=== PATIENT | male | born 1930 | race Caucasian/White ===

== ENCOUNTER 2019-12-16 14:34 | Inpatient (IN) | payer OTHER ==
[~2019-12-16] VITALS: Ht 170.2 cm; Wt 80.3 kg
[2019-12-16 14:36] VITALS: BP 136/70
[2019-12-16 14:55] LABS: ABSOLUTE NEUTROPHILS 4.6 thou/uL (1.4-8.2); BASOPHILS 0.2 % (0.0-2.0); EOSINOPHILS 2.9 % (0.0-3.0); HEMOGLOBIN 14.5 gm/dL (14.0-18.0); LYMPHOCYTES 22.4 % (24.0-44.0); MCH 29.7 pg (26.0-34.0); MCHC 33.8 g/dL (28.0-37.0); MCV 87.8 fL (80.0-100.0); MONOCYTES 8.9 % (1.0-8.0); PLATELET COUNT 168 thou/uL (150-400); POLYS 65.6 % (36.0-66.0); RDW 14.1 % (10.5-14.5)
[2019-12-16] MEDS ORDERED: ARICEPT10 M1 PO (14:56)
[2019-12-16] MEDS ORDERED: ASA81BEC PO (14:56)
[2019-12-16] MEDS ORDERED: CARDIZEM SR 60M60 MG PO (14:56)
[2019-12-16] MEDS ORDERED: VITAMIN B-121000 MC2 SUBLING (14:57)
[2019-12-16] MEDS ORDERED: ATIVAN0.5 M1 PO (14:58)
[2019-12-16] MEDS ORDERED: NIASPAN 500 MG500 M1 PO (14:58)
[2019-12-16] MEDS ORDERED: PROTONIX40 M2 PO (14:59)
[2019-12-16] MEDS ORDERED: SEROQUEL 25 MG25 M1 PO (14:59)
[2019-12-16] MEDS ORDERED: SIMVASTATIN80 MG PO (14:59)
--- NOTE | 2019-12-16 15:00 | NUR ---
PT DENIES PREFERRED PHARM DUE TO BEING IN A ALF FACILITY
[2019-12-16 15:07] LABS: URINE BILIRUBIN NEGATIVE (Negative); URINE BLOOD TRACE (Negative); URINE CLARITY CLEAR; URINE COLOR YELLOW; URINE GLUCOSE-RANDOM* NEGATIVE (Negative); URINE KETONES NEGATIVE (Negative); URINE LEUKOCYTES-REFLEX 1+ (Negative); URINE NITRITE-REFLEX NEGATIVE (Negative); URINE PROTEIN (DIPSTICK) TRACE (Negative); URINE SPECIFIC GRAVITY 1.025 (1.005-1.035); URINE UROBILINOGEN 0.2 E.U./dl (0.2-1.0)
[2019-12-16 15:08] LABS: CALCIUM 8.1 mg/dL (8.5-10.1); CREATININE 1.4 mg/dL (0.7-1.3)
[2019-12-16 15:13] LABS: ALBUMIN 3.2 g/dL (3.4-5.0); TOTAL BILIRUBIN 0.5 mg/dL (0.2-1.0); TOTAL PROTEIN 6.4 g/dL (6.4-8.2)
[2019-12-16 15:19] LABS: BACTERIA-REFLEX 1-9 Few /HPF (None Seen); CRYSTALS None Seen /LPF (None Seen); MUCUS >6 Heavy strn/LPF (None Seen); SQUAMOUS 0-3 Few /LPF (0-3); URINE RBC None Seen /HPF (0-2); URINE WBC-REFLEX >25 Many /HPF (0-5)
[2019-12-16 16:35] VITALS: BP 159/82
[2019-12-16 17:29] VITALS: BP 171/105
--- NOTE | 2019-12-16 18:12 | NUR ---
PT. ARRIVED ON THE UNIT VIA W/C FROM ER. HE HAS BEEN LIVING IN [facility]. HE HAD BEEN THERE ONE WEEK ACCORDING TO THE STAFF THERE. HE STARTED HE WOULD RATHER LIVE IN HELL THAN TO LIVE THERE. STAFF AT [facility] STATES HE HAS TALKED ABOUT UTILIZING A GUN TO KILL HIMSELF. WHEN HE ARRIVED IN ER, HE DENIED ALL OF THAT. HE STATED HE KNOWS THE PRESIDENT IS STEFANO, HE IS IN THE HOSPITAL, AND HE IS 87 YEARS OLD. HE COULD TELL IT IS 2019. HE WAS PLEASANT AND COOPERATIVE WITH THE ADMISSION. HE HAS A COLOSTOMY, DUE TO COLON CA IN THE PAST. PMX ALSO ENCLUDES GOITER, BLADDER TUMOR, MIXED HYPERLIPIDEMIA, ALZHEIMERS. HE IS , BUT HIS LIVES AT HOME ACCORDING TO THE SNF. HE HAS HIS OWN PANTS, NO SHIRT BUT A HOSPITAL GOWN ON. HE WAS INCONTINENT OF BLADDER. WE WERE INFORMED HE TAKES CARE OF HIS COLOSTOMY HIMSELF. HE IS DEPRESSED, BUT ACCEPTING OF BEING HERE. HE IS ON A GENERAL DIET.
[2019-12-16 19:28] VITALS: BP 127/73
[2019-12-16 20:55] LABS: SERUM ASSESSMENT Clear
[2019-12-16 20:56] LABS: CHOLESTEROL 119 mg/dL (<200); HDL CHOLESTEROL 47 mg/dL (>40); LDL CHOLESTEROL 55 mg/dL (<100); TC:HDL 2.5 Ratio (Not establshd); TRIGLYCERIDE 89 mg/dL (<150); VLDL 18 mg/dL (<40)
[2019-12-17] VITALS (7 sets, daily range): BP systolic 107–151; BP diastolic 59–82
--- NOTE | 2019-12-17 00:09 | NUR ---
Assumed care on 12/16/19 @ 19:15, calm and compliant with care. Daughter SYMONE gave verbal permission to treat to 2 nurses, and oriented to rights and responsibilities. Own care of colostomy bag and continent of urine. Ambulates with a walker. In bed with eyes closed, respirations even and unlabored. Will continue to monitor q 12 minutes for patient safety.
--- NOTE | 2019-12-17 16:21 | NUR ---
0730 Awake and alert, orientated X3. Denies SI/HI. Able to ambulate without difficulty to toilet and independently empty ostomy back. Frustrated that he spent 20 yrs in the [employer] learning to be independent and now he is in hospital. Ambulates with walker to day room with steady gait. Breath sounds clear t/o. Reg HR auscultated. Color pink with brisk capillary refill and palpable peripheral pulses. No edema noted. Yellow urine per toilet. Small formed brown per colostomy, bag intact with pink stoma. 0945 Stating he feels like "shit". States he hurts all over but is unable to describe type of pain. VS obtained. Afebrile. Health Lead equal. Placed in recliner and brought back to room where he independently emptied colostomy of large amt air and liquid stool. Refused assistance. Bag intact. Color remains pink with brisk capillary refill and strong pulses. Clear drainage from nose. Dr. Jaffe notified, states she will come assess pt. 1100 Pt. sleeping in recliner in day room without s/o distress. Requires alot of tactile stimulation to awaken but is able to answer questions appropriately and follow commands. 1330 Tylenol given PO for pain. Fed Ensure, 12 oz with med. VSS. Daughter called for update. Expained events of day. Will call at 1530 to speak with father. 1545 Awake and alert, watching TV in day room with peers. No s/o distress. Multiple family members called via conference call. Pt. repeatedly stating that this would be his last day. Making vague SI statements. One family member promised that he would come get pt in 4 days, pt agreed. Pt. able to ambulate without difficulty with walker to room. Currently resting.
--- NOTE | 2019-12-17 20:58 | H ---
[facility] [address] [place] [address] HISTORY AND PHYSICAL Name: SURYA MELENDEZ Room #: 523B-B ADM IN M.R.#: [id number] Admission: 12/16/19 Attend Phys: Zeferino Chang DO Discharge: Date of : [birth year]/01/[birth year] Report #: [id number] THIS REPORT FOR: cc: HARI HAMLIN MD Physician not on staff Zeferino Chang DO ~ CC: Zeferino Chang Physician staff HARI HAMLIN DATE OF SERVICE: 12/17/2019 INPATIENT PSYCHIATRIC EVALUATION ATTENDING PHYSICIAN: Zeferino Chang DO SHAKE SPLITTER: Ca Claire APRN from Hospitalist Service. SOURCES OF INFORMATION: Records from [facility]; telephone discussion with daughter, Syeda; and Emergency Room notes. CHIEF COMPLAINT: Unspecified. REASON FOR ADMISSION: Suicidal ideation. HISTORY OF PRESENT ILLNESS: This is an 89-year-old male, , residing at [facility] in [facility]. He has been there since approximately 12/09/2019, residing with his . Unfortunately, as new residents, they were quarantined there, and apparently, the patient had escalating behavior of stating he did not like it there, stating he was going to harm himself, calling his daughter, stating this, the staff at the facility became worried. These events escalated over the week or so that he was there. Spoke with his daughter, her statement was that the first 5 days, the couple was there, they were not allowed out of their apartment at all including any fresh air, but there was a patio near their apartment that this facility could have provided, they were not allowed to use that. Also the daughter states they were told they could be out in the day area when others were not there. They have passed quarantine, sounds like it was a very difficult situation for all involved. According to the daughter, the patient had informal diagnosis 7 years ago, dementia 6 years ago, was formalized that the patient is 89 and his is 89. Apparently, when the coronavirus epidemic hit, his level of function plummeted. She has a brother from [place] who just went back to [place] a few days ago that stayed with the parents for 3 months. The patient's hygiene has deteriorated in the last several weeks including not shaving, not bathing, not doing colostomy care. Does have a history of colon cancer and permanent colostomy from that. Additional history the daughter provided that I wrote down [facility] [address] [place] [address] HISTORY AND PHYSICAL Name: SURYA MELENDEZ Room #: 523B-B ADM IN [facility].#: [id number] Admission: 12/16/19 Attend Phys: Zeferino Chang, Discharge: Date of : [birth year]/01/[birth year] Report #: [id number] is as follows. MEDICATIONS: List of his medications in jail Aricept 10 mg p.o. daily, aspirin 81 mg p.o. daily, Cardizem 120 mg daily, cyanocobalamin 500 mcg daily, lorazepam 0.5 mg q. 6 hours p.r.n. for anxiety, Niaspan 500 mg p.o. daily, pantoprazole 40 mg p.o. daily, Seroquel 25 mg twice a day, simvastatin 20 mg p.o. daily. In addition, there is an evaluation done on 11/11/2019 by [facility]. PAST MEDICAL HISTORY: Includes goiter, colon cancer status post colostomy, rosacea, bladder tumor, which was surgically removed. The patient did not have bladder chemotherapy because of his chosing not to. PSYCHIATRIC HISTORY: Major neurocognitive disorder due to Alzheimer's disease. ADDITIONAL MEDICAL HISTORY: 1. Degenerative joint disease. 2. Hyperlipidemia. 3. Atherosclerotic heart disease. SOCIAL HISTORY: Remote history of tobaccoism prior to 1979. No alcohol, no recreational drug use. FAMILY HISTORY: Mother at 85 of colon cancer and heart trouble. Father at 75 of stomach cancer. There was some lab work that was sent along but this was remote. His lipids were looking okay with total cholesterol 122, triglycerides 68, HDL 49 at jail, non-HDL 73. His daughter is Syeda Paez, reached at [phone]. She is making decisions along with the brother, it sounds like the has mild dementia. EKG - will order as not done in Er The patient was born in [place], [place], raised there, grew up in the [place] area. 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 No history of physical, sexual or emotional abuse to the patient via his daughter. The patient was only able to be interviewed very briefly this morning. He stated he was very shaky. He seemed to have almost diffuse myoclonic jerks. Regarding any sort of meaningful interview with the patient, I am yet to be able [facility] [address] [place] [address] HISTORY AND PHYSICAL Name: SURYA MELENDEZ Room #: 523B-B ADM IN M.R.#: [id number] Admission: 12/16/19 Attend Phys: Zeferino Chang, DO Discharge: Date of : 11/01/[birth year] Report #: [id number] to obtain that. MUSCULOSKELETAL: Diffuse myoclonic jerks, ambulatory, does have some purpura on his arms. MENTAL STATUS EXAMINATION: This is a well-developed, ill-appearing male, wearing glasses, appearing stated age. Attention limited. Concentration limited. Speech is normal rate. Thought process: Linear and goal directed. Thought content: Focused on rather poverty of thought. Some psychomotor agitation. No psychomotor retardation. He was not able to question really about suicidality, homicidality, auditory, visual, or tactile hallucinations. The patient has not been self-injurious though. Mood and affect constricted, anxious, and irritable. Insight limited. Judgment impaired. Fund of knowledge below average. FORMULATION: An 89-year-old male sent from assisted living facility for repeated threats of suicide. 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 DIAGNOSES: At this time, adjustment disorder likely due to the quarantine being done at jail. Major neurocognitive disorder due to Alzheimer's disease with behavioral disturbance. Multiple morbidities including hyperlipidemia and atrial flutter and gastroesophageal reflux disease. PLAN: The patient is admitted to Geriatric Psychiatry. Evaluate, stabilize, obtain collateral. Regarding his medications, metoprolol 12.5 mg p.o. daily that is succinate for rate control with A-flutter, Keflex 500 mg twice a day for UTI, culture is pending, donepezil 10 mg p.o. daily, diltiazem 120 mg p.o. daily, cyanocobalamin 500 mcg p.o. daily, aspirin 81 mg p.o. daily, pantoprazole 40 mg p.o. daily. Seroquel was increased from 25 to 50 b.i.d. yesterday; given sedation, ____ not increased today. Niacin 500 mg p.o. daily, atorvastatin 10 mg p.o. at bedtime. I did speak with the daughter about discontinuation of niacin and atorvastatin given her dementia and she did not sound ready for that, so I did not pursue that further. STRENGTHS: He is insured, family support. WEAKNESSES: Difficulty with placement, age, having a neurodegenerative disorder. Time spent on interview, review of records, coordination of care is at least 60 minutes. Also, neglected to review a few things from the ER note. REVIEW OF SYSTEMS: Yesterday from the ER, CONSTITUTIONAL: Denies fever, chills, malaise, unexplained weight change. EYES: Denies eye pain, visual change or discharge. [address] [address] HISTORY AND PHYSICAL Name: SURYA MELENDEZ Room #: 523B-B ADM IN M.R.#: [id number] Admission: 12/16/19 Attend Phys: Zeferino Chang DO Discharge: Date of : [birth year]/01/[birth year] Report #: [id number] HENT: Denies hearing changes, ear drainage, ear infections, ear pain, neck pain or neck stiffness. RESPIRATORY: Denies cough, shortness of breath, hemoptysis or respiratory distress. CARDIOVASCULAR: Denies chest pain, chest pain with exertion or edema. GASTROINTESTINAL: Denies abdominal pain, nausea, vomiting or diarrhea. GENITOURINARY: Denies burning, frequency or dysuria. MUSCULOSKELETAL: Denies back pain, joint pain, muscle weakness or myalgias. SKIN: Denies rash. NEUROLOGIC: Denies weakness, headache, loss of consciousness. PSYCHIATRIC: As above. Otherwise, 10-point review of systems negative. LABORATORY DATA: From the ER, sodium 133, which is low. Potassium 4.0, chloride 100, bicarbonate 30, anion gap 3, BUN 11, creatinine 1.4, estimated GFR 48, glucose 105, calcium 8.1, total bilirubin 0.5, AST 20, ALT 12, alkaline phosphatase 70, total protein 6.4. Reviewing laboratories from the Emergency Room at [place] [place] [facility]. Alkaline phosphatase 70, total protein 6.4, albumin 3.2. White count 7.0, H and H 14.5 and 43.0, platelet count 168. Urinalysis had heavy mucus, few bacteria, few squamous cells, 1+ leukocyte esterase, trace blood, trace protein. Interestingly, it shows less than 10,000 CFUs. No further workup unless requested, so I will go ahead discontinue the cephalexin in light of the culture results. Greater than 60 minutes spent on this case including coordination of care, review of records, and phone calls to decision maker. Also, it is unclear if he has a formal DPOA. I did not see it in the chart, but I will look further. <ELECTRONICALLY SIGNED> By: Zeferino Chang DO 12/17/19 2058 1304 [id number] Zeferino Chang, /nt
--- NOTE | 2019-12-17 23:47 | NUR ---
Assumed care of patient this pm shift. Patient joking and in good spirits. Patient is medication adherent. Patient takes medications whole with water. Patient denies pain. Patient denies hi/si. Patient was in his room at the time of assessment laying down. Patients assessment shows clear breath sounds, active bowel sounds, and s1 s2 heard with auscultation. Patient is alert and oriented to time, place, person and situation. Patient is very cooperative and pleasant. We will continue to monitor per hospital policy.
[2019-12-18 08:35] VITALS: BP 111/64
--- NOTE | 2019-12-18 08:42 | NUR ---
PATIENT SITTING ON COUCH. CULINARY ARTS TEACHER NOTICED PATIENT WITHOUT CHAIR ALARM. CULINARY ARTS TEACHER ATTEMPTED TO PLACE ALARM UNDER PATIENT AND PATIENT REFUSED THE ALARM.
--- NOTE | 2019-12-18 09:13 | NUR ---
LATE entry- SW called and spoke with pt's DPOA and completed the intake a TP. Sw will call and set up a kee.me conference call for next week to meet with admin at [facility]. invite to [email or web address]
--- NOTE | 2019-12-18 10:35 | NUR ---
PATIENT CARE ASSUMED AT 0700 - MEDICATIONS ADMINISTERED DURING BREAKFAST. PATIENT RELUCTANT TO ENGAGE WITH STAFF. ATTEMPTED TO QUESTIONED NIGHT BUT IRRITABLE. TOOK MEDICATIONS WHOLE WITHOUT INCIDENCE. DISENGAGED WHEN APPROACHED. RETIRED TO HIS ROOM - HAD EKG DONE THIS MORNING NORMAL SINUS WITH [id number] VT AND QTC OF 465. ASSESSED SKIN INTACT - WARM AND DRY AND LUNGS CLEAR ON AUSCULTATION. PATIENT RETIRED TO HIS ROOM AFTER BREAKFAST AND SLEEPING CURRENTLY. AMBULATORY AND STEADY - WILL CONTINUE TO MONITOR AND ADDRESS PATIENT CONCERNS AND NEEDS.
--- NOTE | 2019-12-18 12:00 | NUR ---
DEVANG called and left a VM for KI at [facility] requesitng a time for a family Zoom meeting on Saturday or Saturday. Devang then faxed updates to this pt's AL at [facility]
--- NOTE | 2019-12-18 12:26 | NUR ---
I went to wake Bret up for lunch. He told me to "leave me alone. I want my daughter to take me out of this [facility] place. No, I don't want lunch." I informed his primary RN.
--- NOTE | 2019-12-18 16:37 | NUR ---
DEVANG completed the intake assessment and TP. tele conference set up for Saturday at 2pm. This will include Yannick at [facility] and pt's family. Devang spoke with Yannick and she believes that pt's spouse can often " help too much " and get in the way of meds and sleep patterns, and can cause more agitation for the pt. They might consider memeory care for him. Weekend Sw will complete the SLUMS
[2019-12-18 19:45] VITALS: BP 92/56
[2019-12-18 22:00] VITALS: BP 92/56
--- NOTE | 2019-12-19 02:51 | NUR ---
Assumed care of patient this pm shift. Patient in good spirits, calm and cooperative. Patient denies pain. Patient denies hi/si. Patient is alert and oriented x4. Patient takes medications whole with thin fluids. Patient states that he feels fine, no depression at this time. Patients assessment shows no signs of acute distress. Patients assessment shows clear breath sounds, active bowel sounds, and s1 s2 heard with auscultation. We will continue to monitor per hospital policy.
[2019-12-19 08:23] VITALS: BP 128/68
[2019-12-19 09:56] VITALS: BP 128/68
--- NOTE | 2019-12-19 10:08 | EKG ---
[facility] [place] [place] [address] ELECTROCARDIOGRAM REPORT Name: SURYA MELENDEZ Room #: [facility] ADM IN M.R.#: [id number] Admission: 12/16/19 Attend Phys: Zeferino Chang DO Discharge: Date of : [birth year] Report #: [id number] THIS REPORT FOR: cc: HARI HAMLIN MD Physician not on staff Andre Wade MD ~ THIS REPORT FOR: //name// [facility] Test Date: 2019-12-18 Test Time: 09:54:07 Pat Name: SURYA MELENDEZ Department: Room: [facility] Gender: M Superintendent Transmission: [facility] : 1930 Requested By: Zeferino Chang Order Number: [id number] MD: Andre Wade Measurements Intervals Thurman Rate: 80 P: 64 UT: 287 QRS: 16 QRSD: 95 T: 45 QT: 403 QTc: 465 Interpretive Statements Sinus rhythm Prolonged UT interval Low voltage, extremity leads Baseline wander in lead(s) V2 No previous ECG available for comparison Electronically Signed On 12-19-2019 10:07:44 CDT by Andre Wade [email or web address] <ELECTRONICALLY SIGNED> By: Andre Wade MD 12/19/19 1007 [id number] Andre Wade MD /EPI
--- NOTE | 2019-12-19 10:45 | NUR ---
1040 RESUMMED CARE FROM OVERNIGHT SHIFT THIS AM, PATIENT IN DAY ROOM QUIET WAITING FOR BREAKFAST. PATIENT ATE BREAKFAST TOOK MEDICATION WITHOUT INCIDENCE. PARIWNT ABDOMEN SOFT ROUND BOWEL SOUNDS PRESENT LUNGS CLEAR. PATIENT DENIES SI/HI/AH/VH AT PRESENT. PATIENT COOPERATIVE CALM PLEASANT WILL CONTINUE MONITOR PATIENT FOR SAFETY AND BEHAVIORS.
[2019-12-19 20:15] VITALS: BP 128/83
--- NOTE | 2019-12-20 03:54 | NUR ---
12-19-19 CARE TRANSFERED 1914 OBSERVED PT SUPINE IN BED RESTING WITH EYES CLOSED. 2009 PT RESTING WITH EYES CLOSED SUPINE IN BED EASILY AROUSED TO VOICE. PT CALM AND COOPERATIVE THROUGHOUT NURSING ASSESSMENT. PT DENIES ANY PAIN OR SI/SH/HI/AVH. DURING MEDICATION ADMIN PT HAD NO DIFFICULTIES. PT HAS BEEN UP TWICE TO USE BATHROOM, NOTED CLOUDY YELLOW URINE, POSSIBLE SEDIMENT WITH FOUL ODOR. APPROXIMATELY 0350 PT AWOKE AND APPEARED TO BE CRYING, PT COULD NOT SAY WHAT IS WRONG, PT DENIED CHEST PAIN AND ANY PAIN AT THIS TIME. PT SKIN W/D, HT S1/S2 RR; RR EVEN AND NONLABORED ON RA; VS ROMY B/P LEFT ARM LYING 118/82, P 60, R 20, T 97.7, O2 SAT 98% RA. REASSURED AND HELD PT HAND, THEN PT EYES CLOSED AND NOTED RR 18 EVEN AND NONLABORED ON RA. RESTING SUPINE. ZERO ACUTE DISTES NOTED. WILL CONTINUE TO MONITOR PER [facility] PROTOCOL.
[2019-12-20 08:50] VITALS: BP 137/85
--- NOTE | 2019-12-20 12:42 | NUR ---
ANXIOUS FACIAL EXPRESSION NOTED DURING 1;1 WITH NURSING. DOES REPORT ANXIETY RATED A 7 ON 1-01 SCALE BUT UNABLE IO ID SOURCE OR TRIGGERING EVENT. DENIES SI/SH CURRENTLY. LIMITED VERBAL RESPONSES TO QUESTIONS ASKED-ORIENTED X2. USING ROLLER WALKER FOR AMBUALTION AND GAIT IS STEADY WITH ASSISITVE DEVICE. INDEPENDENT IN CARES-DENIES CO PAIN/DISVOMFORT, APPETITE GOOD AND REQUESTED SECOND HELPING AT MEALTIME.REMAINS ON FALLS PRECAUTIONS.
--- NOTE | 2019-12-20 16:41 | NUR ---
Pt was sleeping during group.
[2019-12-20 19:20] VITALS: BP 113/66
--- NOTE | 2019-12-20 23:41 | NUR ---
PT ALERT AND ORIENTED. PT WAS IN HIS ROOM LYING DOWN AT TIME OF ASSESSMENT. PT WAS COOPERATIVE WITH ASSESSMENT. MAKING CONVERSATIONS AND LAUGHING WITH NURSING. PT TOOK MEDS WHOLE. PT AMBULATES WITH WALKER TO THE BATHROOM. BED ALARM ON. PT CURRENTLY IN BED SLEEPING. WILL CONTINUE TO MONITOR.
[2019-12-21 08:20] VITALS: BP 133/63
--- NOTE | 2019-12-21 08:30 | NUR ---
PT EATING IN DINING ROOM. PT USES WALKER TO AMBULATE. PT DENIES ANY PAIN AT THIS TIME. PT HAS COLOSTOMY THAT HE EMPTIES HIMSELF. PT SITS ON TOILET TOWARD THE TANK TO EMPTY BAG.
--- NOTE | 2019-12-21 12:21 | NUR ---
PT UP NOW AT THIS TIME EATING LUNCH. PT MEDS GIVEN AND HE WAS CHEWING THE PILLS. PT ENCOURAGED NOT TO CHEW THEM. PT DID DRINK SOME WATER AFTER. PT WAS SLEEPING AFTER BREAKFAST, UNABLE TO GIVE AM MEDS DUE TO SEDATION.
--- NOTE | 2019-12-21 13:17 | NUR ---
SW completed the SLUMS with this pt right after lunch while he was in his room. He was reluctanct and resentful. Pt scored 13/30.
--- NOTE | 2019-12-21 14:46 | NUR ---
AYDE and Dr Chang tele conference with Rui and PATRICIA from [facility], pt's dght and 2 sons, DIL and spouse. The recomendations included memory care at least throught he quarantine period and then some visits with spouse and the possible return to AL. Family disagreed and want pt to return directly to AL. [facility] will reassess virtually on Sat. and a d/c was planned for TR.
--- NOTE | 2019-12-21 16:00 | NUR ---
AYDE faxed updates to Jossie Brule
[2019-12-21 20:16] VITALS: BP 142/63
[2019-12-21 20:40] VITALS: BP 142/63
--- NOTE | 2019-12-22 02:02 | NUR ---
PATIENT HAS BEEN IN BED SLEEPING SINCE BEGINNING OF SHIFT AT 1900. PATIENT WAS AWAKENED FOR PHYSICAL ASSESSMENT. HE HAS COLOSTOMY THAT IS INTACT AND PATENT OF STOOL. PATIENT CHANGES HIS OWN COLOSTOMY BAGS. LAST ONE CHANGED YESTERDAY. PATIEN DENIES SI/HI/AVH. PATIENT SELF ISOLATES IN ROOM AND WOULD NOT COME OUT FOR SNACK. PATIENT DENIES PAIN. PATIENT IS A/0X2. PHYSICAL ASSESSMENT WITHIN NORMAL LIMITS. PATIENT WAS HESITANT ABOUT TAKING HIS MEDS. HE FINALLY DECIDED HE WOULD TAKE THEM IF I INSISTED. PATIENT TOOK MEDS WHOLE WITH WATER. PATIENT WENT BACK TO SLEEP. PATIENT WAS COOPERATIVE BUT FRUSTRATED AND IRRITABLE TO BE AWAKENED. PATIENT WENT BACK TO SLEEP. BED IN LOW POSITION AND BED ALARM IS ON. ROUTINE ROUNDS FOR ASSESSMENT OF STATUS AND SAFETY. CONTINUING TO MONITOR.
--- NOTE | 2019-12-22 12:17 | NUR ---
DEVANG spoke with Rui at [facility] and coordianted an assessment using for 12/22 at 11 am. Devang also recieved an email from Syeda thomas asking for us to reconsider the memory care recomendation.
--- NOTE | 2019-12-22 17:26 | NUR ---
HAS BEEN OUT OF ROOM FOR MEALS AND GROUPS- DID SKIP 1400 RT GROUP WITH REPORTS OF "NOT FEELING WELL MY BACK HURTS" ORIENTED TO PERSON AND TO HOSPITAL BUT NO TO DATE. DYSPHORIC MOOD-IRRITABLE AT TIMES AND ABRUPT IN RESPONSES. CONSTRICTED AFFECT. NO NOTED INTERACTION WITH PEERS AND STATES "I DON'T WANT TO BE AROUND THOSE PEOPLE" "I THOUGHT MY SON WAS COMING TO GET ME TODAY" NO NOTED OR REPORTED ACUTE ANXIETYOR PSYCHOSIS-WHEN ASKED ABOUT DEPRESSION STATES "WELL I'M AN OLD MAN I HAVEN'T GOT MUCH LEFT" GAIT IS STEADY WITH USE OF ROLLER WALKER-REMAINS ON FALLS PRECAUTIONS.
[2019-12-22 20:41] VITALS: BP 123/45
--- NOTE | 2019-12-23 05:59 | NUR ---
PT ORIENTED TO PERSON AND PLACE. PT WAS PLEASANT AND COOPERATIVE WITH ASSESSMENT. PT WAS IN HIS ROOM AT TIME OF ASSESSMENT. PT DENIES SI/HI/ PT DENIES ANXIETY AND/OR DEPRESSION. FALL PRECAUTION IN PLACE. PT AMBULATES VIA WALKER. PT TOOK MEDS WHOLE. WILL CONTINUE TO MONITOR.
[2019-12-23 06:47] LABS: CALCIUM 8.4 mg/dL (8.5-10.1); CREATININE 1.3 mg/dL (0.7-1.3)
[2019-12-23 07:30] VITALS: BP 154/75
[2019-12-23 08:15] VITALS: BP 154/75
--- NOTE | 2019-12-23 08:31 | NUR ---
RT Progress Note- Bret's presence in the milieu is extremely limited as he prefers to spend most of his time in his room avoiding the other patients. Bret was recently put on room lockout orders due to avoiding groups. This has not been efficient in his participation as he continues to not participate when present in group- closing eyes and not responding when spoken to.
--- NOTE | 2019-12-23 12:00 | NUR ---
AYDE has communicated wiht family via email and reported that the asseement with TS will be today and that no neuro testing will be provided swathi family wanted this pt to d/c prior to Saturday. YADE assisted pt to complete his virutal assessment and he complained that he didnt understand and couldnt hear, but then later began stating " you better get me out of here- i'd rather be ". Later AYDE spoke with TS and encourage dthem to use a suicide assessment and to consider this pt's inability to follow through iwht his threats, and that he will continue to be morbid, but to try AL and hen transfer to memory care if needed. They stated they would talk to their regional and get back with this worker today.
--- NOTE | 2019-12-23 16:18 | NUR ---
AYDE spoke with Rui at and they will accept this pt back intheir [facility]. AYDE set up transportation for 9am. Reported this to TS, family and nursing staff.
--- NOTE | 2019-12-23 16:34 | NUR ---
Sw made packet and left it on the chart. SW also reminded nursing that the COVID 19 testing needed to be completed for the 9 am discharge.
[2019-12-23 19:33] VITALS: BP 124/61
--- NOTE | 2019-12-24 08:39 | NUR ---
Did not recieve the COVID 19 test results in time for 9 am d/c. Transporation is rescheduled to 10 am. Will conitnue to post pone until the results are. These tests were ordered at 2:30pm yesterday.
[2019-12-24] MEDS ORDERED: SEROQUEL 25 MG25 M1 PO (08:55)
[2019-12-24] MEDS ORDERED: METOPROLOL SUCC25 M1 PO (08:55)
[2019-12-24] MEDS ORDERED: CARDIZEM CD120 MG PO (08:56)
[2019-12-24] MEDS ORDERED: ATORVASTATIN CA10 MG PO (08:56)
[2019-12-24 09:32] VITALS: BP 103/57
--- NOTE | 2019-12-24 09:45 | NUR ---
PATIENT HAS BEEN UP, AND OUT ON THE UNIT, TOOK MEDICATION WHOLE WITHOUT DIFFICULTY. PATIENT CONSUMED ABOUT 75% BREAKFAST, DRINKING FLUID WELL. PATIENT DENIES SUICIDAL/HOMICIDAL IDEATION "I WAS IN THE , HAVE BEEN FOR 62 YEARS, HAVE THREE GREAT KIDS. I JUST WANT TO GET OUT OF HERE. I KNOW AM PUTTING LOTS OF STRESS ON THEM. AFFECT IS BLUNTED, MOOD IS CALM. PATIENT DENIES DEPRESSION/ANXIETY. PATIENT IS BEING DISCHARGED TODAY BY DR. RADFORD. PATIENT CARES FOR COLOSTOMY, STAFF STANDING BY. PATIENT IS READY TO BE DISCHARGED, HE IS DRESSED, CHOOSE NOT TO FILL OUR SURVEY. AWAITING FAMILY TO PICK HIM UP.
[2019-12-24 10:10] VITALS: BP 103/57
--- NOTE | 2019-12-24 10:27 | NUR ---
Sw made packet and left on chart last night. CoVID test orders, and summary were faxed to [facility].
== END 2019-12-24 11:00 | DRG 57 ==
LOC: ER 14:34 → SBH 16:14 → EROBS 16:14 → SBH 16:50
PROVIDERS: Hospitalist; Nurse Practitioner Family; Physician Assistant; ADMIT Psychiatry & Neurology Psychiatry; ATTEND Psychiatry & Neurology Psychiatry
DX: G20 Parkinson's disease (principal); F01.51 Vascular dementia, unspecified severity, with behavioral disturbance; N17.9 Acute kidney failure, unspecified; R45.851 Suicidal ideations; N39.0 Urinary tract infection, site not specified; M19.90 Unspecified osteoarthritis, unspecified site; E78.5 Hyperlipidemia, unspecified; I25.10 Atherosclerotic heart disease of native coronary artery without angina pectoris; I10 Essential (primary) hypertension; Z66 Do not resuscitate; Z20.828 Contact with and (suspected) exposure to other viral communicable diseases; Z85.038 Personal history of other malignant neoplasm of large intestine; Z82.49 Family history of ischemic heart disease and other diseases of the circulatory system; Z80.0 Family history of malignant neoplasm of digestive organs
CPT/HCPCS: 10880

== ENCOUNTER 2020-02-05 20:03 | Inpatient (IN) | payer OTHER ==
[~2020-02-05] VITALS: Ht 185.4 cm; Wt 79.1 kg
[~2020-02-05 20:03] MED LIST: ARICEPT10 M1 PO; ASA81BEC PO; ATIVAN0.5 M1 PO; ATORVASTATIN CA10 MG PO; CARDIZEM CD120 MG PO; CARDIZEM SR 60M60 MG PO; METOPROLOL SUCC25 M1 PO; NIASPAN 500 MG500 M1 PO; PROTONIX40 M2 PO; SEROQUEL 25 MG25 M1 PO; SIMVASTATIN80 MG PO; VITAMIN B-121000 MC2 SUBLING
[2020-02-05 20:06] VITALS: BP 167/86
--- NOTE | 2020-02-05 20:13 | NUR ---
ITEMS LOCKED IN CABINET 2, WALKER OUTSIDE ROOM.
[2020-02-05 21:50] LABS: ABSOLUTE NEUTROPHILS 4.3 thou/uL (1.4-8.2); BASOPHILS 0.5 % (0.0-2.0); EOSINOPHILS 1.8 % (0.0-3.0); HEMATOCRIT 42.1 % (42.0-52.0); LYMPHOCYTES 25.4 % (24.0-44.0); MCH 29.4 pg (26.0-34.0); MCHC 33.2 g/dL (28.0-37.0); MCV 88.6 fL (80.0-100.0); MONOCYTES 9.5 % (1.0-8.0); PLATELET COUNT 169 thou/uL (150-400); POLYS 62.8 % (36.0-66.0); RBC 4.75 mil/uL (4.50-6.00); RDW 14.5 % (10.5-14.5); WBC 6.9 thou/uL (4.0-11.0)
[2020-02-05 22:03] LABS: ANION GAP 7 mmol/L (7-16); BUN 8 mg/dL (7-18); CALCIUM 8.4 mg/dL (8.5-10.1); CHLORIDE 102 mmol/L (98-107); CO2 29 mmol/L (21-32); CREATININE 1.2 mg/dL (0.7-1.3); GLUCOSE 97 mg/dL (74-106); POTASSIUM 3.4 mmol/L (3.5-5.1); SODIUM 138 mmol/L (136-145)
[2020-02-05 22:07] LABS: URINE BILIRUBIN NEGATIVE (Negative); URINE BLOOD NEGATIVE (Negative); URINE CLARITY CLEAR; URINE COLOR YELLOW; URINE GLUCOSE-RANDOM* NEGATIVE (Negative); URINE KETONES NEGATIVE (Negative); URINE LEUKOCYTES-REFLEX NEGATIVE (Negative); URINE NITRITE-REFLEX NEGATIVE (Negative); URINE PROTEIN (DIPSTICK) NEGATIVE (Negative); URINE UROBILINOGEN 0.2 E.U./dl (0.2-1.0)
[2020-02-05 22:13] LABS: ALBUMIN 3.4 g/dL (3.4-5.0); SGOT 19 U/L (15-37); SGPT 14 U/L (30-65); TOTAL BILIRUBIN 0.4 mg/dL (0.2-1.0); TOTAL PROTEIN 6.9 g/dL (6.4-8.2); TROPONIN-I <0.06 ng/mL (<0.06)
--- NOTE | 2020-02-06 07:15 | NUR ---
THIS ELECTRIC MOTOR REPAIRMAN WAS UPDATED BY REVIOUS SHIFT THAT PT WAS TESTED FOR COVID 19 AND HIS FACILITY AND THAT THEY SHUOLD BE CONTACTED TO SEE IF TOSE RESULTS COULD BE FAXED TO THIS ER. NURSE ASAF AT FACILITY REPORTS THAT PT WAS TESTED ON SATURDAY AND NO RESULTS ARE IN YET. UPDATED DR FERNANDES AND HAMIDA RN
[2020-02-06] MEDS ORDERED: SEROQUEL 50 MG50 M1 PO (08:15)
[2020-02-06] MEDS ORDERED: TYLENOL325 MG PO (08:17)
[2020-02-06] MEDS ORDERED: ATIVAN0.5 M1 PO (08:19)
[2020-02-06] MEDS ORDERED: MILK OF MA400 MG/5 M PO (08:21)
[2020-02-06] MEDS ORDERED: ZOFRAN4 MG PO (08:22)
--- NOTE | 2020-02-06 10:53 | EKG ---
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[facility] 1930 Requested By: Surya Murillo Order Number: [id number] MD: Juan David Wayne Measurements Intervals [place] Rate: 89 P: 0 ND: 67 QRS: -27 QRSD: 97 T: 29 QT: 402 QTc: 490 Interpretive Statements Atrial fibrillation Poor R wave progression Inferior infarct, old Compared to ECG 12/18/2019 09:54:07 Atrial fibrillation has replaced sinus rhythm Inferior Q waves are more prominent Electronically Signed On 02-06-2020 10:53:47 CDT by Juan David Wayne [email or web address] <ELECTRONICALLY SIGNED> By: Juan David Wayne MD, [facility] 02/06/20 1053 16 16 Juan David Wayne MD, [facility] /EPI
[2020-02-06 12:33] VITALS: BP 135/78
[2020-02-06 14:22] VITALS: BP 128/80
--- NOTE | 2020-02-06 17:29 | NUR ---
1400 NEW ADMIT HERE FROM [facility] PATIENT CAME FROM THE ED. PATIENT UNHAPPY WITH HIS CURRENT LIVING SITUATION AND DAUGHTER STATES PATIENT IS MOVING TO A NEW PLACEMENT FEBRUARY 19, 2020. PATIENT MADE SI STATEMENTS SAYING HE WAS GOING TO WALK IN TRAFFIC. PATIENT IN THE ED WAS TRYING TO [facility] AND WAS GIVEN GEODON IM AT 2215. PATIENT UPON ARRIVING ON THE UNIT CALM COOPERATIVE. PATIENTS ABDOMEN SOFT ROUND BOWEL SOUNDS PRESENT LUNGS CLEAR PATIENT HAS AN OSTOMY BAG. PATIENT IS INDEPENDENT WITH ADL'S AND CAN CHANGE HIS OWN OSTOM BAG. PATIENT DENIES SI/HI/AH/VH AT PRESENT AND STATES HE IS FRUSTRATED WITH HIS PLACEMENT. PATIENT WAS HERE LAST MONTH FOR SIMILAR BEHAVIORS. PATIENT ATE DINNER AND WAS CONERSATING WITH OTHER MALE PATIENTS. WILL CONTINUE TO MONITOR PATIENT FOR SAFETY AND BEHAVIORS.
[2020-02-06 19:39] VITALS: BP 155/86
--- NOTE | 2020-02-07 02:14 | NUR ---
02-06-20 CARE TRANSFERED 1899 OBSERVED PT SUPINE IN BED RESTING WITH EYES CLOSED. 1954 PT SUPINE IN BED RESTING WITH EYES CLOSED, PT EASILY AROUSED TO VOICE, AAOX2, SKIN W/D, VSS, RR EVEN AND NONLABORED ON RA. PT DENIES ANY PAIN OR SI/SH/HI/VAH. PT DENIES ANY FURTHER CONCERNS AT THIS TIME. DURING MEDICATION ADMIN PT DROPED PILLS ONTO FLOOR; PT REQUESTED A HS SNACK, PT WAS POSITION IN DAY ROOM WITH SNACK AND MEDICATION WAS WASTED AND REPULLED. ZERO S/S OF ACUTE EMOTIONAL OR MEDICAL DISTRESS NOTED. WILL CONTINUE TO MONITOR PER [facility] PROTOCOL.
[2020-02-07 07:40] VITALS: BP 73/44
[2020-02-07 08:30] VITALS: BP 100/60
--- NOTE | 2020-02-07 09:37 | NUR ---
0700 ASSUMED CARE OF PATIENT, PATIENT SITTING IN DAYROOM AT THAT TIME. PATIENT EATING BREAKFAST DENIES NEEDS. 0830 PATIENT REFUSES MEDICATION. PATIENT DOES HAVE SI THOUGHTS WITH NO PLAN. PATIENT STATES "I JUST WANT TO , I AM OLD AND DO NOT WANT TO PUT UP WITH THIS BULL SHIT". " MY FAMILY DOES NOT CARE ABOUT ME, THEY JUST WANT MY MONEY. I WANT TO GO TO SLEEP AND NOT WAKE UP. TELEPHONE SERVICE REPRESENTATIVE ABOUD HERE TO SEE PATIENT. VS OBTAINED - BP 73/44 P 103 R 18 TEMP 97.9 O2 SATS 97%. WILL RECHECK BP. PATIENT BACK TO ROOM LYING DOWN IN BED WITH EYES CLOSED.
[2020-02-07 09:50] VITALS: BP 100/60
--- NOTE | 2020-02-07 14:35 | NUR ---
SW was able to meet with Pt to complete assessment. Pt denied SI/HI. Pt denied AH/VH. Although Pt denied SI Pt made several comments about dying. SW clarified with Pt several time about SI. Pt stated at one time " I would never do that, I have people who love me". However later stated "I just want to lay down in this bed hoping I won't wake up in the morning". Pt also stated " I am just ready to of old age". Pt presented to have no intrest in any hobbies and stated he was too old to socialize. " I have done all that, I don't want to socialize, I dont want to talk on the phone with family, they know I wish them well". SW will continue to follow Pt during stay
[2020-02-07 19:27] VITALS: BP 194/88
[2020-02-07 21:21] VITALS: BP 155/86
--- NOTE | 2020-02-08 00:55 | NUR ---
02-07-20 CARE TRANSFERED AT 1900 OBSERVED PT IN SITTING IN DINING ROOM. 1999 PT AAOX4, CALM AND COOPERATIVE. PT DENIES ANY PAIN AT THIS TIME AND SI/SH/HI/VAH. PT REPORTED HE WANTS TO GO HOME, HIS AND FAMILY NEED HIM HOME. REVIEWED VS AND NOTED ELEVATED B/P AND PULSE, ROMY B/P TAKEN WITH PT SITTING LEFT ARM 155/86, APICAL PULSE 88, R 18, T 97.3, O2 SAT 97% ON RA RR EVEN AND NONLABORED ON RA, PT SKIN W/D. PT HAD NO DIFFICULTIES TAKING MEDICATION WHOLE WITH WATER. ASKED PT AGAIN IF HE WAS SI, PT REPORTED "SRINI READY FOR MY MAKER, SRINI OLD" pt was asked if he had a plan. PT REPORTED "HELL NO, I WANT TO LIVE FROM MY FAMILY, BUT I AM READY TO ". ZERO ACUTE S/S OF EMOTIONAL OR MEDICAL DISTRESS NOTED. WILL CONTINUE TO MONITOR PER [facility] PROTOCOL.
[2020-02-08 07:20] VITALS: BP 120/74
--- NOTE | 2020-02-08 09:01 | NUR ---
0700 ASSUMED CARE OF PATIENT, PATIENT LAYING IN BED WITH EYES CLOSED. PATIENT TO DAYROOM FPR BREAKFAST AT 0850. ATTEMTED TO GIVE MEDICATIONS TO PATIENT, PATIENT APPEARS IRRITATED AND ASKS TO BE LEFT ALONE SO HE CAN EAT. GAS ENGINE OPERATOR WILL ATTEMPT TO GIVE MEDICATIONS AFTER BREAKFAST. PATIENT NOT ATTENDING GROUP. VS WNL, DENIES OTHER NEEDS.
--- NOTE | 2020-02-08 09:57 | NUR ---
PATIENT LYING IN BED AT THIS TIME. PATIENT WANTS TO ISOLATE HIMSELF AND REFUSES TO ATTEND GROUP. VALET RUNNER ATTEMPTED TO GIVE AM MEDICATIONS, PATIENT REFUSED AND YELLS "THROW THEM IN THE TOILET, IM NOT TAKING THOSE". "THEY MAKE ME FEEL BAD". PATIENT STARTS TO GET OUT OF BED TO GRAB PILLS AND TAKE THEM TO THE TRASH. VALET RUNNER LEAVES ROOM. WILL NOTIFY
--- NOTE | 2020-02-08 12:12 | NUR ---
AYDE contacted [facility] at [phone] and spoke with pt's nurse Brad. She said according to their admin pt is his own person and does not have a DPOA. She said pt has been refusing meds and has been making SI statements. In order for him to return he needs to not be making SI statements and be reassessed by DON to see if he is in need of a higher level of care. She gave the fax number of [phone] ATTN: nursing to fax updates. AYDE team will continue to follow pt during his stay on this unit.
[2020-02-08 19:52] VITALS: BP 159/85
--- NOTE | 2020-02-08 20:58 | NUR ---
Care of patient assumed at 1915. Patient is sleeping at this time. Patient is awakened for assessment and meds at 2020. A/O x 4. Uncooperative with assessment, and refuses medications. When asked why he is not taking his medications, he states "I was sleeping already. I don't need any meds, I just need sleep." Dr. Chang is made aware of refusal. No orders currently for injection if patient refuses oral meds. Will continue to monitor overnight.
[2020-02-09 07:31] VITALS: BP 139/89
[2020-02-09 09:28] VITALS: BP 139/89
--- NOTE | 2020-02-09 11:38 | NUR ---
1100 RESUMMED CARE FROM OVERNIGHT SHIFT THIS AM, PATIENT IN ROOM QUIET. PATIENT CAME TO DAY ROOM ATE BREAKFAST TOOK MEDICATION WITHOUT INCIDENCE. PATIENT DENIES SI/HI/AH/VH AT PRESENT, PATIENTS ABDOMEN SOFT ROUND BOWEL SOUNDS PRESENT. PATIENT LUNGS CLEAR PATIENT DID PARTICIPATE IN GROUPS DUE TO ROOM LOCKOUT. PATIENT QUIET COOPERATIVE WANTS TO LEAVE THIS HOSPITAL STATEING HE DOES NOT NEED TO BE HERE. PATIENTS DAUGHTER CALLED TO CHECK ON PATIENT AND ASKED ME TO TELL HER FATHER HIS PLACEMENT HAS EVERYTHING NEW. HE IS ALSO GOING TO SHARE ROOMS WITH HIS . PATIENT PLEASED TO HEAR THAT WILL CONTINUE TO MONITOR PATIENT FOR BEHAVIORS AND SAFETY.
[2020-02-09 20:04] VITALS: BP 165/78
--- NOTE | 2020-02-10 03:27 | NUR ---
Care of patient assumed at 1915. Patient is sleeping in bed. As patient was upset previous night when he missed snack time, this nurse wakes him to remind him that snack will be available in 20 minutes. Patient is irritable and snaps "whatever, have fun" and rolls back over. 15 minutes after snacks have been handed out, patient comes to the day room for snack. Politely requests ice cream, then accepts HS meds. After eating his ice cream he returns to bed and goes to sleep.
[2020-02-10 07:53] VITALS: BP 117/59
[2020-02-10 09:45] VITALS: BP 120/84
--- NOTE | 2020-02-10 12:00 | NUR ---
1100 RESUMMED CARE FROM OVERNIGHT SHIFT THIS AM, PATIENT IN ROOM LYING QUIET IN BED. I GOT PATIENT UP FOR BREAKFAST AND HE TOOK MEDICATION WITHOUT INCIDENCE. I LOCKED PATIENTS DOOR SO HE WOULD NOT BE TEMPTED TO ISOLATE IN ROOM. PATIENT DENIES SI/HI/AH/VH AT PRESENT PATIENTS ABDOMEN SOFT ROUND BOWEL SOUNDS PRESENT. PATIENTS LUNGS CLEAR PATIENT WANTS TO LEAVE THIS HOSPITAL; PATIENT HAS NOT DISPLAYED ANY BEHAVIORS. PATIENT IS VERY OPINIONATED ABOUT WHAT HE WOULD LIKE TO DO. WILL CONTINUE TO MONITOR PATIENT FOR SAFETY AND BEHAVIORS.
--- NOTE | 2020-02-10 12:53 | NUR ---
AYDE spoke with Syeda who said her ideal plan is for pt to go straight from [facility] to [facility]. She said she will look into possibly moving pt there before 02/18. She said pt really does not like [facility]. Syeda will contact [facility] and ask them to contact AYDE. SW team will continue to follow pt during his stay on this unit.
--- NOTE | 2020-02-10 19:15 | NUR ---
Care of patient assumed at 1915. Patient is sleeping in his bed. Patient is awakened and notified that snack is in progress. Patient comes to DR to receive snack. Cooperates with assessment. A/O x 4. HS, LS, BS normal. Reports no problems with ostomy. States he is happy with the decision to relocate to the same facility will be at. Denies pain. Denies SI/HI. Compliant with HS meds and retires to bed.
[2020-02-10 19:16] VITALS: BP 148/68
[2020-02-11 07:17] VITALS: BP 112/67
--- NOTE | 2020-02-11 09:51 | NUR ---
AYDE sent to Syeda Pae[facility] a copy of pt's enactment doc. SW team will continue to follow pt during his stay on this unit.
--- NOTE | 2020-02-11 10:36 | NUR ---
REFUSED TO PARTICIPATE IN AM RT GROUP-PUT TOWEL OVER HEAD AND STATES "I CAN TAKE MY NAP NOW" DYSPHORIC MOOD-ABRUPT VERBAL RESPONSES AND REFUSES TO ANSWER MANY QUESTIONS. DID TAKE AM MEDICATIONS AND DENIES C/O PAIN/DISCOMFORT. DENIES SI/SH/HI-STATES "WOULD IT GET ME OUT OF HERE SOONER IF I SAID YES?'
--- NOTE | 2020-02-11 11:43 | NUR ---
AYDE contacted Paz with [facility] to ask if moving pt's intake date of 02/18 to 02/16 was possible. She said it is possible; it is just a matter of contacting [facility] and getting pt's transferred as well as furniture for pt. She said pt will also need a COVID-19 test before he can be admitted there. She would like to do pt's admission on Saturday. AYDE will fax her pt's current meds and notes from the time he has been admitted to [phone]. AYDE faxed updates to Paz. AYDE team will continue to follow pt during his stay on this unit.
[2020-02-11 20:05] VITALS: BP 131/67
--- NOTE | 2020-02-11 20:05 | NUR ---
Assumed care on 02/11/20 @ 19:15, in room in bed. eyes closed, respirations even and unlabored. Awakens to touch, Denies SI/HI/AH/VH. Cooperates with assesement, HRRR, S1S2 noted, Lungs CTA, ABD active bowel sounds. reports ostomy bag is fine and he does not need any help with it. SHOALWATER with out hearing aides in his ears. Reminded of snack time being soon, and he turned over and closed eyes.
[2020-02-11 22:03] VITALS: BP 131/67
--- NOTE | 2020-02-12 05:50 | NUR ---
Slept well thru the night. Awoke once to toilet and came out to the day room and got crackers for a snack, then returned to bed. Denied pain, denied additional needs.
[2020-02-12 07:40] VITALS: BP 112/53
--- NOTE | 2020-02-12 09:38 | NUR ---
SLIGHT INCREASE IN SPONTANEOUS VERBALIZATION WITH STAFF TODAY. REMAINS ABRUPT IN RESPONSES AND EXPRESSES FRUSTRATION OVER CURRENT LIVING SITUATION AND HOSPITALIZATION BUT DENIES SI/SH WHEN ASKED STATING "IF I SAY YES I KNOW WHAT THAT MEANS" DID RELUCTANTLY ALLOW THIS NURSE TO PROVIDE SHAVE AND PARTIAL BATH IN ROOM STATING "IF IT MAKES YOU FEEL GOOD THEN FINE" USING ROLLER WALKER TO AMBULATE IN HALLWAYS AND GAIT IS SLOW AND STEADY.
--- NOTE | 2020-02-12 10:55 | NUR ---
RT Progress Note- Bret is not an active participant in either the milieu or recreation therapy groups. He is ordered to be locked out of his room for meals and groups, which he reluctantly complies with. When groups are in session, Bret sits in a reclining chair on the edge of group and removes his hearing aids. He frequently states, "I'm almost 89 years old" as a reason for his lack of participation.
--- NOTE | 2020-02-12 10:58 | NUR ---
AYDE received a call from Syeda stating that she is unable to move pt to [facility] before the move in date of 02/18 because she cannot find a moving company to help move before then. AYDE explained then that pt will need to return to [facility] on the first available day next week. AYDE contacted [facility] and spoke to Darien who said pt will need a COVID screen and possibly an assessment from their DON before returning. He is aware pt is to move to [facility] next week. He will contact AYDE with the answer on if pt is in need of an assessment. AYDE faxed updates and a copy of pt's DPOA docs to Darien. AYDE team will continue to follow pt during his stay on this unit.
[2020-02-12 20:13] VITALS: BP 143/68
--- NOTE | 2020-02-13 03:59 | NUR ---
02-12-20 CARE TRANSFERED 1914 OBSERVED PT IN DAY ROOM. 2034 PT AAOX3, VSS, RR EVEN AND NONLABORED ON RA. PT DENIES ANY PAIN AND SI/SH/HI/VAH, PT WAS CALM AND COOPERATIVE THROUGHOUT NURSING ASSESSMENT. DURING MEDICATION ADMIN PT HAD NO DIFFICULTIES. LATER PT WAS UP AND WALKING HALLWAYS, PT PRESENTED WITH IRRITABLE ABOUT NOT HAVING HIS OWN CLOTHES, BUT STAYED CALM. ZERO S/S OF ACUTE EMOTIONAL OR MEDICAL DISTRESS.
[2020-02-13 07:01] VITALS: BP 149/79
[2020-02-13 09:13] VITALS: BP 149/79
--- NOTE | 2020-02-13 10:10 | NUR ---
1000 RESUMMED CARE FROM OVERNIGHT SHIFT THIS AM, PATIENT IN ROOM ASLEEP. I WOKE PATIENT UP FOR BREAKFAST AND ASSESSMENT. PATIENT TOOK MEDICATION WITHOUT INCIDENCE. PATIENT DENIES SI/HI/AH/VH AT PRESENT, PATIENTS ABDOMEN SOFT ROUND BOWEL SOUNDS PRESENT. PATIENT LUNGS CLEAR PATIENT ORIENTED TIMES 4, PATIENT IS NOT ISOLATING IN HIS ROOM. PATIENT WANTS TO LEAVE AND GO TO HIS NEXT PLACEMENT. PATIENT HAS NOT DISPLAYED ANY BEHAVIORS WILL CONTINUE TO MONITOR PATIENT FOR SAFEY AND BEHAVIORS.
[2020-02-13 19:25] VITALS: BP 146/55
[2020-02-13 20:22] VITALS: BP 146/55
--- NOTE | 2020-02-14 03:30 | NUR ---
02-13-20 CARE TRANSFERED 1899 OBSERVED PT RIGHT SIDE LYING RESTING IN BED WITH EYES CLOSED. 1924 PT STILL RESTING, EASILY AWAKEN TO VOICE, PT AAOX3, VSS, RR EVEN AND NONLABORED ON RA. PT DENIES PAIN AND SI/SH/HI/VAH. PT REPORTED HE IS TIRED AND REFUSES HS SNACK IN DAY ROOM. PT PRESENTED CALM AND COOPERATIVE DURING NURSING ASSESSMENT. DURING MEDICATION ADMIN PT HAD NO DIFFICULTIES. LATER DURING ROUNDS NOTED PT HAS BEEN RESTING IN BED WITH EYES CLOSED. ZERO S/S OF ACUTE EMOTIONAL OR MEDICAL DISTRES NOTED, WILL CONTINUE TO MONITOR PER [facility] PROTOCOL.
[2020-02-14 09:18] VITALS: BP 133/67
[2020-02-14 09:31] VITALS: BP 133/67
--- NOTE | 2020-02-14 10:54 | NUR ---
1050 RESUMMED CARE FROM OVERNIGHT SHIFT THIS AM; PATIENT IN ROOM ASLEEP I GOT PATIENT UP FOR BREAKFAST TOOK MEDICATION WITHOUT INCIDENCE. PATIENT DENIES SI/HI/AH/VH AT PRESENT. PATIENTS ABDOMEN SOFT ROUND BOWEL SOUNDS PRESENT LUNGS CLEAR. PATIENT COOPERATIVE CALM ORIENTED TIMES 3 YOU HAVE TO REMIND PATIENT NOT TO ISOLATE IN ROOM. PATIENT WANTS TO GET OUT OF HERE WILL CONTINUE TO MONITOR PATIENT FOR SAFETY AND BEHAVIORS.
[2020-02-14 19:59] VITALS: BP 128/58
--- NOTE | 2020-02-15 03:48 | NUR ---
02-13-10 CARE TRANSFERED 1899 OBSERVED PT RIGHT SIDE LYING RESTING IN BED WITH EYES CLOSED. 1929 PT RIGHT SIDE LYING RESTING IN BED WITH EYES CLOSED EASILY AWAKEN TO VOICE. PT AAOX3, VSS, RR EVEN AND NONLABORED ON RA; PT DENIES PAIN AND SI/SH/HI/VAH. PT REMAINED CALM AND COOPERATIVE THROUGHOUT NURSING ASSESSMENT. DURING MEDICATION ADMIN PT HAD NO DIFFICULTIES. ZERO S/S OF ACUTE EMOTIONAL OR MEDICAL DISTRESS, WILL CONTINUE TO MONITOR PER [facility] PROTOCOL.
[2020-02-15 07:32] VITALS: BP 132/79
[2020-02-15 13:16] VITALS: BP 132/79
--- NOTE | 2020-02-15 13:24 | NUR ---
ASSUMED CARE AT 0700 THIS MORNING. PT. UP FOR MEALS AND TOOK MEDICATIONS. HE THEN RETURNED TO HIS ROOM AND LAID DOWN. HE WAS COOPERATIVE WHEN THIS RN WENT TO HIS ROOM AND ASSESSED HIM. HE DENIED PAIN. HRR. LUNGS CTA, ABD SOFT, PEDAL PULSES BILATERAL AND EQUAL. HE STATED HE HAD A BM LAST NIGHT. NO AGITATION NOTED FROM HIM. 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 HE IS EATING WELL.
[2020-02-15 19:52] VITALS: BP 155/64
--- NOTE | 2020-02-15 20:06 | NUR ---
Assumed care on 02/15/20, seated in the dayroom, cooperated with assessment, but at first refused, then smiled to himself. HRRR, Lungs CTA, ABD normoactive, reports BM x 2 today. Reports wants to go home and drive his car, wants to go to his trailer, reports does not want to go to any kind of facility.
[2020-02-15 23:20] VITALS: BP 155/64
--- NOTE | 2020-02-16 05:59 | NUR ---
Slept well overnight for a total of 10.6 hours.
[2020-02-16 07:43] VITALS: BP 138/73
--- NOTE | 2020-02-16 11:18 | NUR ---
0700 ASSUMED CARE OF PATIENT, PATIENT LYING IN BED AT THAT TIME.0730 PATIENT AMB TO DAYROOM WITH WALKER WITH STEADY GAIT. PATIENT EATING BREAKFAST STATING "THIS FOOD IS HORRIBLE". PATIENT ATE 100% OF MEAL. MEDICATION TAKEN WHOLE WITHOUT DIFFICULTY. PATIENT DENIES NEEDS AT THAT TIME. PATIENT IN DAYROOM DURING GROUP. PATIENT BACK TO ROOM AFTER GROUP. WILL CONTINUE TO OBSERVE.
--- NOTE | 2020-02-16 14:02 | NUR ---
SW completed the DOXY assessment with his new NH.
--- NOTE | 2020-02-16 15:12 | NUR ---
AYDE recieved a VM from Paz from [facility] concerning a doxy.me appointment that was set up for 11am to complete and assessment with Pt. @1512 AYDE called [facility] concerning the matter, however Paz had left for the day. AYDE left a message for Paz to contact AYDE [facility] to set up another appointment to complete the assessment.
--- NOTE | 2020-02-16 15:34 | NUR ---
DPOA Syeda Pavon called and stated she did not recieve the emailed letter to enact DPOa. Syeda requested it to be faxed to her. Per request of DPOA faxed letter to enact DPOA to [phone].
[2020-02-16 19:25] VITALS: BP 98/53
--- NOTE | 2020-02-16 22:24 | NUR ---
Assumed care on 02/16/20 @ 19:15, in room, isolates self. Cooperates with assessment, WNL and VS 155/64 78 20 97.5 97%. Compliant with medication administration. Tylenol 650 provided for general pain of 5/10. Bed in low position, will continue to moitor as per protocol for patient safety and well being.
--- NOTE | 2020-02-17 06:40 | NUR ---
slept 9.4 hour overnight.
[2020-02-17 07:52] VITALS: BP 122/55
--- NOTE | 2020-02-17 10:22 | NUR ---
AYDE contacted [facility] to discuss pt's discharge to the facility. AYDE was told that she was in a meeting at the moment and will call AYDE back. Nursing received a call from Syeda Paez asking about pt's discharge. AYDE contacted her at [phone] and provided her an update. AYDE team will continue to follow pt during his stay on this unit.
[2020-02-17 11:00] VITALS: BP 122/55
--- NOTE | 2020-02-17 11:22 | NUR ---
ASSUMED CARE AT 0700 TODAY. PT. IN THE DINING ROOM. AFTER BREAKFAST HE WANTED TO RETURN TO HIS ROOM. HE WAS REMINDED HE IS ON ROOM LOCKOUT. HE VERBALIZED UPSET WITH THAT FACT. HE DID UTILIZE THE BATHROOM IN HIS ROOM THE RETURN TO THE DAY ROOM FOR RT THIS MORNING. HE IS GOING TO BE DISCHARGED TODAY. TIME HAS NOT BEEN SET AT THIS TIME. FAMILY CALLED FOR UPDATE AND WANTED TO SPEAK TO THE PLACING JUDGE. THE INFORMATION WAS PASSED NO TO THE SW. SHE RETURNED CALL TO THE FAMILY.
[2020-02-17] MEDS ORDERED: ARICEPT10 M1 PO (13:21)
[2020-02-17] MEDS ORDERED: METOPROLOL SUCC25 M1 PO (13:22)
[2020-02-17] MEDS ORDERED: CARDIZEM CD120 MG PO (13:23)
[2020-02-17] MEDS ORDERED: SEROQUEL 100 M100 MG PO (13:24)
[2020-02-17] MEDS ORDERED: CALCIUM 600 +1 EAC1 PO (13:25)
--- NOTE | 2020-02-17 16:26 | NUR ---
AYDE D/C NOTE AYDE faxed pt's discharge docs to [facility]. AYDE will file confirmation pg in pt's hospital file. No other needs for sW team to address at this time.
== END 2020-02-17 14:55 | disposition short-term general hospital (02) | DRG 57 ==
LOC: ER 20:03 → SBH 02-06 12:38
PROVIDERS: Emergency Medicine; ADMIT Psychiatry & Neurology Psychiatry; ATTEND Psychiatry & Neurology Psychiatry
DX: G30.9 Alzheimer's disease, unspecified (principal); F01.51 Vascular dementia, unspecified severity, with behavioral disturbance; F02.81 Dementia in other diseases classified elsewhere, unspecified severity, with behavioral disturbance; R45.851 Suicidal ideations; E78.5 Hyperlipidemia, unspecified; E78.2 Mixed hyperlipidemia; M19.90 Unspecified osteoarthritis, unspecified site; E87.6 Hypokalemia; I10 Essential (primary) hypertension; Z96.649 Presence of unspecified artificial hip joint; F29 Unspecified psychosis not due to a substance or known physiological condition; Z20.828 Contact with and (suspected) exposure to other viral communicable diseases; Z85.038 Personal history of other malignant neoplasm of large intestine; Z79.899 Other long term (current) drug therapy; Z90.49 Acquired absence of other specified parts of digestive tract; Z98.49 Cataract extraction status, unspecified eye
CPT/HCPCS: 10880